=== PATIENT | male | born 1955 | race Caucasian/White ===

== ENCOUNTER → 2017-01-02 | Outpatient (CLI) | payer MEDICAID | END | disposition home or self-care (01) | LOC: PCVCCLINIC 09:40 | PROVIDERS: ATTEND Internal Medicine Cardiovascular Disease | DX: E78.00 Pure hypercholesterolemia, unspecified (principal); R06.00 Dyspnea, unspecified; E11.9 Type 2 diabetes mellitus without complications; I10 Essential (primary) hypertension; J44.9 Chronic obstructive pulmonary disease, unspecified; I25.10 Atherosclerotic heart disease of native coronary artery without angina pectoris; Z95.1 Presence of aortocoronary bypass graft | CPT/HCPCS: 80061; 93005; G0463 ==

== ENCOUNTER → 2017-01-27 | Outpatient (CLI) | payer MEDICAID ==
[~2017-01-27] MED LIST: REGADENOSON 0.4 MG/5 ML DISP.SYRIN. IV ONE
== END | disposition home or self-care (01) ==
LOC: PCVCIMAG 09:51
PROVIDERS: ATTEND Internal Medicine Cardiovascular Disease
DX: I25.10 Atherosclerotic heart disease of native coronary artery without angina pectoris (principal); J44.9 Chronic obstructive pulmonary disease, unspecified; R06.00 Dyspnea, unspecified; Z95.1 Presence of aortocoronary bypass graft; Z95.5 Presence of coronary angioplasty implant and graft; Z82.49 Family history of ischemic heart disease and other diseases of the circulatory system
CPT/HCPCS: 78452; 93017; A9500; J2785

== ENCOUNTER → 2017-09-18 | Outpatient (CLI) | payer MEDICAID ==
--- NOTE | 2017-09-18 10:35 | PCVCIMAG ---
EXAM: ABDOMINAL ULTRASOUND COMPLETE INDICATION: Abdominal pain FINDINGS: Gallbladder: No gallstones. No wall thickening or abnormal pericholecystic fluid. Liver: Normal in size measuring 18.7 cm in length. No focal masses. Increased echogenicity throughout the liver most compatible with diffuse fatty infiltration. Bile ducts: No intra or extra hepatic bile duct dilatation. The common bile duct measures 4.5 mm. Pancreas: Unremarkable where seen. Spleen: Normal in size measuring 11.3 cm in greatest dimension. No focal masses. Right kidney: No hydronephrosis. Length measures 12.6 cm. Left kidney: No hydronephrosis. Length measures 12.8 cm. Inferior vena cava: Normal in size where seen. Aorta: Normal in caliber where seen. IMPRESSION: Probable fatty infiltration throughout the liver. Abdomen otherwise unremarkable. LOC:[id number]
== END | disposition home or self-care (01) ==
LOC: PCVCIMAG 08:06
PROVIDERS: ATTEND Internal Medicine Cardiovascular Disease
DX: R10.9 Unspecified abdominal pain (principal)
CPT/HCPCS: 76700

== ENCOUNTER → 2017-11-25 | Outpatient (CLI) | payer MEDICAID | END | disposition home or self-care (01) | LOC: PCVCCLINIC 09:58 | DX: I25.10 Atherosclerotic heart disease of native coronary artery without angina pectoris (principal); I10 Essential (primary) hypertension; E78.00 Pure hypercholesterolemia, unspecified; E11.9 Type 2 diabetes mellitus without complications; J44.9 Chronic obstructive pulmonary disease, unspecified; Z95.1 Presence of aortocoronary bypass graft; Z87.891 Personal history of nicotine dependence; Z79.82 Long term (current) use of aspirin; Z79.899 Other long term (current) drug therapy; Z79.84 Long term (current) use of oral hypoglycemic drugs | CPT/HCPCS: 80061; 93005; G0463 ==

== ENCOUNTER → 2018-11-20 | Outpatient (CLI) | payer MEDICAID | END | disposition home or self-care (01) | LOC: PCVCCLINIC 14:57 | PROVIDERS: ATTEND Internal Medicine Cardiovascular Disease | DX: I25.10 Atherosclerotic heart disease of native coronary artery without angina pectoris (principal); I10 Essential (primary) hypertension; E11.9 Type 2 diabetes mellitus without complications; J44.9 Chronic obstructive pulmonary disease, unspecified; R94.31 Abnormal electrocardiogram [ECG] [EKG]; R53.83 Other fatigue; Z79.82 Long term (current) use of aspirin; Z79.899 Other long term (current) drug therapy; Z88.8 Allergy status to other drugs, medicaments and biological substances; Z79.84 Long term (current) use of oral hypoglycemic drugs; Z87.891 Personal history of nicotine dependence | CPT/HCPCS: 36415; 80061; 93005; G0463 ==

== ENCOUNTER → 2018-12-25 | Outpatient (CLI) | payer MEDICAID ==
--- NOTE | 2018-12-25 10:29 | PCVCIMAG ---
APPROVED REPORT Study performed: 12/25/2018 07:50:28 EXAM: Comprehensive 2D, Doppler, and color-flow Echocardiogram Patient Location: Echo lab Status: routine BSA: 2.06 HR: 70 bpmBP: 140/72 mmHg Rhythm: NSR Other Information Study Quality: Adequate Risk Factors: Cardiac Risk Factors: HTN, DM Indications COPD CAD cabg X5 2D Dimensions IVSd: 11.59 (7-11mm) LVDd: 44.35 mm PWd: 11.61 (7-11mm)Ascending Ao: 40.79 (22-36mm) LVDs: 31.90 (25-40mm) Left Atrium: 41.15 (27-40mm) Aortic Root: 37.87 mm LV Single Plane 4CH: 44.02 % LV Single Plane 2CH: 49.23 % Biplane EF: 46.1 % Volumes Left Atrial Volume (Systole) Single Plane 4CH: 86.47 mLSingle Plane 2CH: 73.54 mL LA ESV Index: 40.00 mL/m2 Aortic Valve AoV Peak Amor.: 1.32 m/s AO Peak Gr.: 6.93 mmHgLVOT Max P.07 mmHg LVOT Max V: 1.01 m/s Mitral Valve E/A Ratio: 1.2 MV Decel. Time: 159.54 ms MV E Max Amor.: 0.88 m/s MV A Amor.: 0.74 m/s IVRT: 114.19 ms Pulmonary Valve PV Peak Amor.: 0.99 m/sPV Peak Gr.: 3.95 mmHg Pulmonary Vein P Vein S: 0.36 m/sP Vein A: 0.27 m/s P Vein D: 0.61 m/sP Vein A Dur.: 114.2 msec P Vein S/D Ratio: 0.59 Tricuspid Valve TR Peak Amor.: 2.34 m/s TR Peak Gr.: 21.90 mmHg TV Vmax: 0.68 m/s Left Ventricle The left ventricle is normal size. There is normal LV segmental wall motion. Mild concentric left ventricular hypertrophy. Left ventricular systolic function is normal. The left ventricular ejection fraction is within the lower limits of normal range. LVEF is 50%. The left ventricular diastolic function is normal. Right Ventricle The right ventricle is normal size. The right ventricular systolic function is normal. Atria Left atrium is mildly dilated. The right atrium size is normal. Aortic Valve The aortic valve is normal in structure. Trace aortic regurgitation. There is no aortic valvular stenosis. Mitral Valve The mitral valve is normal in structure. Trace mitral regurgitation. No evidence of mitral valve stenosis. Tricuspid Valve The tricuspid valve is normal in structure. Trace tricuspid regurgitation with PAP of 30 mmHg. Pulmonic Valve The pulmonary valve is normal in structure. There is no pulmonic valvular regurgitation. Great Vessels The aortic root is normal in size. The ascending aorta is mildly dilated to 4.1 cm. IVC is normal in size and collapses >50% with inspiration. Pericardium There is no pericardial effusion. There is no pleural effusion. <Conclusion> The left ventricle is normal size. Left ventricular systolic function is normal. The left ventricular ejection fraction is within the lower limits of normal range. LVEF is 50%. The left ventricular diastolic function is normal. The right ventricle is normal size. Left atrium is mildly dilated. Trace aortic regurgitation. Trace mitral regurgitation. Trace tricuspid regurgitation with PAP of 30 mmHg. The aortic root is normal in size. The ascending aorta is mildly dilated to 4.1 cm. There is no pericardial effusion.
--- NOTE | 2018-12-25 16:11 | PCVCIMAG ---
APPROVED REPORT Imaging Protocol: Rest Tc-99m/Stress Tc-99m 1 day Study performed: 12/25/2018 08:27:33 Indication: CAD Patient Location: Out-Patient Stress Nurse: Gaby Alfred RN, Etelvina Littlejohn RN [place] Tech:Erica French [facility] Ht: 5 ft 10 in Wt: 210 lbs BSA: 2.13 m2 HR: 65 bpm BP: 132/74 mmHg BMI: 30.1 Rhythm: Sinus Rhythm, 1st degree AV block Medical History Medical History: HTN, Hyperlipidemia, Diabetes, COPD, Former Smoker Allergies: Amiodarone Cardiac Risk Factors: Age Previous Cardiac Procedures: 2002 CABG, 2012 PCI Pretest Chest Pain Characteristics: No chest pain Resting Data Rest SPECT myocardial perfusion imaging was performed in supine position 45 minutes following the intravenous injection of 11.2 mCi of Tc-99m Sestamibi. Time of rest injection: 829 Date: 12/25/2018 Administration Route: IV Administration Site: Left Hand Pharmacologic Stress Pharmacologic stress test was performed by injecting Regadenoson 0.4 mg IV push over 10-15 seconds immediately followed by the intravenous injection of 35.3 mCi of Tc-99m Sestamibi. Time of stress injection: 929 Date: 12/25/2018 Administration Route: IV Administration Site: Left Hand Gated Stress SPECT was performed 45 minutes after stress injection. The images were gated to evaluate regional wall motion and calculate left ventricular ejection fraction. Stress Test Details Stress Test: Pharmacologic stress testing performed using 0.4 mg of regadenoson per 5 mL given IV over 10 seconds. Reason for pharmacologic stress test: physical limitation. HRMax Heart Rate (APMHR): 157 bpm Resting HR: 65 bpmTarget HR (85% APMHR): 133 bpm Max HR Achieved: 96 bpm % of APMHR: 61 Recovery HR: 78 bpm BP Resting BP: 132/74 mmHg Max BP: 133/90 mmHg Recovery BP: 158/74 mmHg ECG Resting ECG: Sinus Rhythm, 1st degree AV block Stress ECG: Sinus Rhythm, 1st degree AV block Recovery ECG: Sinus Rhythm, 1st degree AV block Clinical Reason for Termination: Completed protocol Stress Symptoms: Abdominal discomfort, Dyspnea, Nausea, Lightheaded Exercise duration: 0 min 55 sec Symptoms resolved with caffeine. Stress ECG Conclusion ECG: Non-ischemic Study Quality Study: Good Study Data Post stress, the left ventricular ejection was 63%.. SSS: 8 SRS: 2 SDS: 6 TID = 1.07. 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 Wall Motion Normal left ventricular size and function. 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 Post stress, the left ventricular ejection was 63%. Findings are similar to January 2017. Interpreted by: Mustapha Santiago MD Electronically Approved: 12/25/2018 13:07:55 <Conclusion> ECG: Non-ischemic
== END | disposition home or self-care (01) ==
LOC: PCVCIMAG 07:56
PROVIDERS: ATTEND Internal Medicine Cardiovascular Disease
DX: I25.10 Atherosclerotic heart disease of native coronary artery without angina pectoris (principal); J44.9 Chronic obstructive pulmonary disease, unspecified; R06.09 Other forms of dyspnea; E78.5 Hyperlipidemia, unspecified; E11.9 Type 2 diabetes mellitus without complications; Z95.1 Presence of aortocoronary bypass graft; Z87.891 Personal history of nicotine dependence
CPT/HCPCS: 78452; 93017; 93306; A9500; J2785